=== PATIENT | female | born 1930 | race African-American/Black ===

== ENCOUNTER 2018-05-16 18:18 | Inpatient (IN) | payer MEDICARE, MEDICAID ==
[~2018-05-16] VITALS: Ht 170.2 cm; Wt 73.9 kg
[~2018-05-16 18:18] MED LIST: AMLO2.5T45 PO; LEVO112T7 PO; METF-414 PO; VALS160T2 PO
[2018-05-16] MEDS ORDERED: MORPHINE SULFATE 4 MG/ML CPJ (NOT FOR IM USE) IV STA (18:57)
[2018-05-16] MEDS ORDERED: MORPHINE SULFATE 10 MG/ML CPJ IV STA (19:06)
[2018-05-16] MEDS ORDERED: SODIUM CHLORIDE 0.9% 1,000 ML IV ONE (19:08)
[2018-05-16 19:32] LABS: BASOPHILS % 0.7 % (0.0-2.0); EOSINOPHILS % 2.5 % (0.0-5.0); HEMATOCRIT. 39.4 % (36.0-48.0); HEMOGLOBIN. 12.6 g/dL (12.0-16.0); LYMPHOCYTES % 37.7 % (20.0-50.0); MEAN CORPUSCULAR HEMOGLOBIN 25.8 pg (28.0-32.0); MEAN CORPUSCULAR VOLUME 80.5 fL (81.0-99.0); MEAN PLATELET VOLUME 10.3 fl (7.4-10.4); MONOCYTES % 8.2 % (2.0-8.0); NEUTROPHILS % 50.9 % (40.0-76.0); PLATELET 261 x1000/uL (130-400)
[2018-05-16 19:34] LABS: CHLORIDE 100 mEq/L (98-107)
[2018-05-16] MEDS ORDERED: ENOXAPARIN 80MG/0.8ML SYR SUBCUT ONE (20:15)
[2018-05-16] MEDS ORDERED: ACETAMINOPHEN 650MG SUPP PR PRN (23:45)
[2018-05-16] MEDS ORDERED: DEXTROSE 50% WATER 50ML SYRINGE IV PRN (23:45)
[2018-05-17] VITALS (7 sets, daily range): BP systolic 111–157; BP diastolic 58–86
[2018-05-17] MEDS ORDERED: DILTIAZEM HCL 5MG/ML 25ML VIAL IV SCH ×2 (01:00→01:18)
[2018-05-17] MEDS ORDERED: KETOROLAC 15MG/ML VIAL IV PRN (02:15)
[2018-05-17] MEDS: BLOOD SUGAR DIAGNOSTIC STRIP TEST SCH ×4 (06:45→20:36)
[2018-05-17] MEDS: INSULIN LISPRO 100 UNITS/ML SUBCUT SCH ×4 (06:45→21:15)
[2018-05-17 07:46] LABS: BASOPHILS % 0.5 % (0.0-2.0); EOSINOPHILS % 2.1 % (0.0-5.0); HEMOGLOBIN. 10.6 g/dL (12.0-16.0); LYMPHOCYTES % 38.1 % (20.0-50.0); MEAN CORPUSCULAR HEMOGLOBIN 26.1 pg (28.0-32.0); MEAN CORPUSCULAR VOLUME 80.9 fL (81.0-99.0); MEAN PLATELET VOLUME 10.8 fl (7.4-10.4); MONOCYTES % 7.9 % (2.0-8.0); NEUTROPHILS % 51.4 % (40.0-76.0); PLATELET 193 x1000/uL (130-400); RED BLOOD CELL COUNT 4.08 mill/uL (4.2-5.4); RED CELL DISTRIBUTION WIDTH 15.1 % (11.6-14.6)
[2018-05-17 08:50] LABS: CHLORIDE 103 mEq/L (98-107)
[2018-05-17] MEDS ORDERED: DILTIAZEM HCL 5MG/ML 5ML VIAL IV PRN (09:45)
[2018-05-17] MEDS ORDERED: MAGNESIUM 1 G PREMIX 100 ML IV NR (11:00)
[2018-05-17] MEDS: DILTIAZEM HCL 60MG TABLET PO SCH ×3 (11:33→20:35)
[2018-05-17] MEDS: POTASSIUM CHLORIDE 20MEQ TABLET SR PO PRN ×2 (11:34→17:36)
[2018-05-17] MEDS: ASPIRIN 81MG EC TABLET PO SCH (11:34)
[2018-05-17] MEDS ORDERED: POTASSIUM CHLORIDE 20MEQ TABLET SR PO NR (13:15)
[2018-05-17 16:43] LABS: *AMPHETAMINES SCREEN URINE NEGATIVE (NEGATIVE); *BARBITURATES SCREEN URINE NEGATIVE (NEGATIVE)
[2018-05-17 16:44] LABS: *BENZODIAZEPINES SCREEN URINE NEGATIVE (NEGATIVE); *COCAINE SCREEN URINE NEGATIVE (NEGATIVE); METHADONE URINE SCREEN NEGATIVE (NEGATIVE); OPIATES URINE SCREEN NEGATIVE (NEGATIVE)
[2018-05-17 16:46] LABS: CANNABINOID URINE SCREEN NEGATIVE (NEGATIVE); PHENCYCLIDINE URINE SCREEN NEGATIVE (NEGATIVE)
[2018-05-17 18:04] LABS: HEMATOCRIT 33.7 % (36.0-48.0); HEMOGLOBIN 10.9 g/dL (12.0-16.0)
[2018-05-17] MEDS ORDERED: POTASSIUM BICARB/CIT ACID 25 MEQ TABLET.EFF PO NR (18:15)
[2018-05-17] MEDS: ATORVASTATIN CALCIUM 10MG TABLET PO SCH (20:35)
[2018-05-18] VITALS: BP 146/59
[2018-05-18 04:00] VITALS: BP 155/84
[2018-05-18] MEDS: BLOOD SUGAR DIAGNOSTIC STRIP TEST SCH ×4 (05:51→21:00)
[2018-05-18] MEDS: DILTIAZEM HCL 60MG TABLET PO SCH ×3 (05:51→21:06)
[2018-05-18] MEDS: INSULIN LISPRO 100 UNITS/ML SUBCUT SCH ×4 (07:40→21:15)
[2018-05-18 08:00] VITALS: BP 145/63
[2018-05-18] MEDS: ASPIRIN 81MG EC TABLET PO SCH (09:01)
[2018-05-18 09:03] LABS: CHLORIDE 104 mEq/L (98-107)
[2018-05-18 09:27] LABS: LDL CHOLESTEROL 175 mg/dL (5-100)
[2018-05-18 09:29] LABS: HDL CHOLESTEROL 52 mg/dL (40-59)
[2018-05-18 12:00] VITALS: BP 122/58
[2018-05-18 16:00] VITALS: BP 161/88
[2018-05-18] MEDS: POTASSIUM BICARB/CIT ACID 25 MEQ TABLET.EFF PO SCH (16:24)
[2018-05-18] MEDS: METFORMIN HCL 500MG TABLET PO SCH (16:25)
[2018-05-18] MEDS ORDERED: RIVAROXABAN 20 MG TABLET PO SCH (17:00)
[2018-05-18 20:00] VITALS: BP 131/71
[2018-05-18] MEDS: ATORVASTATIN CALCIUM 10MG TABLET PO SCH (21:06)
[2018-05-19] VITALS: BP 141/77
[2018-05-19 04:00] VITALS: BP 130/86
[2018-05-19] MEDS: DILTIAZEM HCL 60MG TABLET PO SCH ×2 (05:53→13:43)
[2018-05-19] MEDS: INSULIN LISPRO 100 UNITS/ML SUBCUT SCH ×2 (06:39→12:09)
[2018-05-19] MEDS: BLOOD SUGAR DIAGNOSTIC STRIP TEST SCH ×2 (06:39→12:09)
[2018-05-19 07:41] LABS: CHLORIDE 101 mEq/L (98-107)
[2018-05-19 08:00] VITALS: BP 122/67
[2018-05-19] MEDS: ASPIRIN 81MG EC TABLET PO SCH (08:17)
[2018-05-19] MEDS: METFORMIN HCL 500MG TABLET PO SCH (08:18)
[2018-05-19] MEDS: POTASSIUM BICARB/CIT ACID 25 MEQ TABLET.EFF PO SCH (08:18)
[2018-05-19] MEDS ORDERED: POTASSIUM CHLORIDE 20MEQ TABLET SR PO SCH (09:00)
[2018-05-19 12:00] VITALS: BP 139/79
[2018-05-19] MEDS ORDERED: RIVAROXABAN 20 MG TABLET PO SCH (17:00)
[2018-05-19] MEDS ORDERED: INFLUENZA VIRUS VACCINE(AFLURIA) 0.5ML SYR IM ONE (18:00)
[2018-05-19] MEDS ORDERED: PNEUMOCOCCAL 23-VAL P-SAC VAC 0.5 ML IM ONE (18:00)
== END 2018-05-19 17:00 | disposition home or self-care (01) | DRG 310 ==
LOC: ER 18:18 → 8WST 20:05 → ENRESERV 23:42
PROVIDERS: ADMIT Internal Medicine Critical Care Medicine; ATTEND Internal Medicine Critical Care Medicine
DX: I48.0 Paroxysmal atrial fibrillation (principal); D50.9 Iron deficiency anemia, unspecified; E11.9 Type 2 diabetes mellitus without complications; E78.5 Hyperlipidemia, unspecified; E83.42 Hypomagnesemia; E87.6 Hypokalemia; I95.9 Hypotension, unspecified; E89.0 Postprocedural hypothyroidism; I35.1 Nonrheumatic aortic (valve) insufficiency; I10 Essential (primary) hypertension; I25.10 Atherosclerotic heart disease of native coronary artery without angina pectoris; J44.9 Chronic obstructive pulmonary disease, unspecified; Z79.01 Long term (current) use of anticoagulants; Z82.49 Family history of ischemic heart disease and other diseases of the circulatory system; Z83.3 Family history of diabetes mellitus; Z87.891 Personal history of nicotine dependence; Z91.19 Patient's noncompliance with other medical treatment and regimen; Z79.84 Long term (current) use of oral hypoglycemic drugs; Z79.899 Other long term (current) drug therapy; Z98.42 Cataract extraction status, left eye; Z98.41 Cataract extraction status, right eye
CPT/HCPCS: 36415; 71045; 80048; 80061; 80305; 82962; 83036; 83735; 83880; 84443; 84484; 85014; 85018; 90686; 90732; 93005; 93306; 96374; 99285; J1650; J1815; J2270; J3475; J3490; J7030; J7050